=== PATIENT | male | born 1950 | race Two or more races ===

== ENCOUNTER 2022-02-06 05:59 | Day surgery (SDC) | payer OTHER ==
[~2022-02-06] VITALS: Ht 170.2 cm; Wt 68.0 kg
[~2022-02-06 05:59] MED LIST: PRILOSEC OTC20 MG PO
[2022-02-06] MEDS ORDERED: RECTICARE30 GM TOP (11:26)
[2022-02-06] MEDS ORDERED: PERCOCET 5-3251 EACH PO (11:26)
== END 2022-02-06 14:05 | disposition home or self-care (01) ==
LOC: CIR.AMB 05:59
PROVIDERS: ATTEND Surgery
DX: D12.9 Benign neoplasm of anus and anal canal (principal); Z20.822 Contact with and (suspected) exposure to COVID-19; Z88.2 Allergy status to sulfonamides; E78.5 Hyperlipidemia, unspecified; J45.909 Unspecified asthma, uncomplicated